=== PATIENT | male | born 1960 | race Hispanic/Latino ===

== ENCOUNTER 2019-01-17 14:54 | Outpatient (CLI) | payer OTHER ==
--- NOTE | 2019-01-17 15:43 | RAD ---
AP pelvis one view HISTORY: Pelvic pain. FINDINGS: Sacral alae and pelvic rings are intact. Mild degenerative changes of the sacroiliac joints and hips. Phleboliths project over the pelvis. No acute fracture, dislocation, or aggressive osseous erosions. Small irregular shaped metallic densities over the lateral right side of the image in the left upper image may represent extrinsic artifact. IMPRESSION: Mild degenerative change of the hips. No acute osseous abnormalities are demonstrated.
--- NOTE | 2019-01-17 15:56 | RAD ---
Exam: 3 VIEWS LUMBAR SPINE: HISTORY: Disability evaluation. FINDINGS: Five lumbar type vertebral bodies. Mild leftward curvature of the lumbar spine. Posterior element hypertrophy at L4-L5 and L5-S1. Multilevel degenerative disc disease with loss of disc space height and osteophyte formation, through out the lumbar spine. No evidence of a lumbar spine fracture. 6 mm of anterolisthesis of L5 upon S1. Degenerative changes involving the distal thoracic spine. IMPRESSION: Extensive degenerative changes of the distal thoracic and lumbar spine. Mild leftward curvature of th e upper lumbar spine. Better interrogation with MRI may be warranted. Transcribed Date/Time: 01/17/2019 4:06 PM
--- NOTE | 2019-01-17 15:59 | RAD ---
Exam:2 views right hip HISTORY: Disability evaluation. COMPARISON: None FINDINGS: Contour of the femoral head is maintained. No fracture. Joint spaces preserved. IMPRESSION: Unremarkable 2 views right hip
== END 2019-01-17 14:55 | disposition home or self-care (01) ==
LOC: NAV RAD 14:54
PROVIDERS: ATTEND Family Medicine
DX: Z02.71 Encounter for disability determination (principal); M48.55XG Collapsed vertebra, not elsewhere classified, thoracolumbar region, subsequent encounter for fracture with delayed healing; M25.551 Pain in right hip; M47.814 Spondylosis without myelopathy or radiculopathy, thoracic region; M47.816 Spondylosis without myelopathy or radiculopathy, lumbar region; M16.0 Bilateral primary osteoarthritis of hip; M43.9 Deforming dorsopathy, unspecified
CPT/HCPCS: 72100; 72170